=== PATIENT | female | born 1980 | race Two or more races ===

== ENCOUNTER 2020-06-14 19:53 | Emergency (ER) | payer OTHER ==
[~2020-06-14] VITALS: Ht 162.6 cm; Wt 119.7 kg
--- NOTE | 2020-06-14 20:28 | NUR ---
US AT BEDSIDE
[2020-06-14] MEDS ORDERED: IV NS 0.9% 1,000 ML BAG IV ONE (20:30)
--- NOTE | 2020-06-14 20:56 | NUR ---
BLOOD DRAWN AND SENT TO THE LAB.
[2020-06-14 21:21] LABS: BASOPHILS # (AUTO) 0.1 /CMM (0.0-0.2); BASOPHILS % (AUTO) 0.5 % (0.0-2.0); EOSINOPHILS % (AUTO) 2.5 % (0.0-6.0); HEMATOCRIT 39 % (33-45); HEMOGLOBIN 12.6 g/dL (11.5-14.8); LYMPHOCYTES # (AUTO) 3.7 /CMM (0.8-4.8); LYMPHOCYTES % (AUTO) 32.4 % (20.0-44.0); MEAN CORPUSCULAR HGB CONC 33 g/dl (31.0-36.0); MEAN CORPUSCULAR VOLUME 89 fL (82-100); MONOCYTES # (AUTO) 0.9 /CMM (0.1-1.30); MONOCYTES % (AUTO) 8.3 % (2.0-12.0); NEUTROPHILS # (AUTO) 6.4 /CMM (1.8-8.9); NEUTROPHILS % (AUTO) 56.3 % (43.0-81.0); PLATELET COUNT (AUTO) 267 /CMM (150-450); RED BLOOD CELL COUNT(AUTO) 4.33 MIL/uL (4.0-5.2); WHITE BLOOD COUNT (AUTO) 11.4 K/uL (4.3-11.0)
[2020-06-14 21:30] LABS: CREATININE 0.8 mg/dL (0.6-1.3); POTASSIUM 3.6 mmol/L (3.5-5.1)
[2020-06-14 21:42] LABS: ALBUMIN 3.2 g/dL (3.4-5.0); BILIRUBIN,DIRECT 0.1 mg/dL (0.0-0.2); BILIRUBIN,TOTAL 0.3 mg/dL (0.2-1.0); TOTAL PROTEIN, SERUM 7.5 g/dL (6.4-8.2)
--- NOTE | 2020-06-14 22:18 | NUR ---
UNABLE TO ESTABLISH IV LINE ON PATIENT. JAJA COHEN NOTIFIED. IV LINE ORDER CANCELLED.
--- NOTE | 2020-06-14 23:26 | NUR ---
[facility] CALL THE CAR CALLED FOR TRANSPORT. TRIP# [id number]
--- NOTE | 2020-06-14 23:47 | NUR ---
ETA 0030
[2020-06-15 01:58] VITALS: BP 115/83
--- NOTE | 2020-06-15 01:58 | NUR ---
REPORT GIVEN TO AMBULANCE MEMBER FOR [facility].
== END 2020-06-15 01:59 | disposition home or self-care (01) ==
LOC: ER 19:59
DX: N92.0 Excessive and frequent menstruation with regular cycle (principal); E78.5 Hyperlipidemia, unspecified; I10 Essential (primary) hypertension; Z86.73 Personal history of transient ischemic attack (TIA), and cerebral infarction without residual deficits
CPT/HCPCS: 36415; 76856-TC; 80048-TC; 80076-TC; 84702-TC; 85025-TC; 85730-TC; 86850-TC; J7030

== ENCOUNTER 2021-05-25 17:53 | Emergency (ER) | payer OTHER ==
[~2021-05-25] VITALS: Ht 167.6 cm; Wt 116.6 kg
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
[2021-05-25] MEDS ORDERED: MORPHINE SULFATE INJ 4 MG/ML DISP.SYRIN ONE (18:29)
[2021-05-25] MEDS ORDERED: MORPHINE SULFATE INJ 2 MG/ML DISP.SYRIN IM ONE (18:30)
--- NOTE | 2021-05-25 18:57 | NUR ---
X RAY AT BEDSIDE
--- NOTE | 2021-05-25 19:40 | NUR ---
[facility] in [facility] - 05/25/21 at 1940 by KATIE PT TRANSPORTED TO CT SCAN VIA [facility]
--- NOTE | 2021-05-25 19:41 | NUR ---
PT TRANSPORTED TO CT VIA [facility]
--- NOTE | 2021-05-25 19:52 | NUR ---
PT RETURNED FROM CT SCAN
--- NOTE | 2021-05-25 20:26 | NUR ---
CALLED FACILITY FOR REPORT AND SPOKE TO TARUN
--- NOTE | 2021-05-25 20:56 | NUR ---
[facility] ETA: 60-75 MIN
--- NOTE | 2021-05-25 22:28 | NUR ---
[facility] AM[facility] AT BEDSIDE. REPORT GIVEN TO EMT.
--- NOTE | 2021-05-25 22:40 | NUR ---
Patient discharged to home in stable condition. Written and verbal after care instructions given. Patient verbalizes understanding of instruction. IV line removed and pt discharged via [facility] ambulance.
[2021-05-25 22:41] VITALS: BP 107/66
== END 2021-05-25 22:41 | disposition home or self-care (01) ==
LOC: ER 17:55
DX: S09.90XA Unspecified injury of head, initial encounter (principal); M25.552 Pain in left hip; M54.2 Cervicalgia; I10 Essential (primary) hypertension; E78.5 Hyperlipidemia, unspecified; Z86.73 Personal history of transient ischemic attack (TIA), and cerebral infarction without residual deficits; W05.0XXA Fall from non-moving wheelchair, initial encounter; Y93.89 Activity, other specified; Y92.89 Other specified places as the place of occurrence of the external cause; Y99.8 Other external cause status
CPT/HCPCS: 70450; 72125; 73503; 93005; 96372; 99284; J2270; 73502